=== PATIENT | male | born 1965 | race Caucasian/White ===

== ENCOUNTER 2017-01-22 12:31 | Emergency (ER) | payer OTHER ==
[~2017-01-22] VITALS: Ht 172.7 cm; Wt 90.4 kg
[2017-01-22 13:20] LABS: HEMATOCRIT 46.2 % (39.2-51.8); HEMOGLOBIN 16.3 g/dL (13.7-18.0); WHITE BLOOD COUNT 5.1 x10^3/uL (3.4-10)
[2017-01-22 13:32] LABS: BLOOD UREA NITROGEN 11 mg/dL (7-18)
[2017-01-22 15:07] VITALS: BP 150/90
== END 2017-01-22 15:09 | disposition home or self-care (01) ==
LOC: ED 14:00
DX: R10.32 Left lower quadrant pain (principal); E11.9 Type 2 diabetes mellitus without complications
CPT/HCPCS: 36415; 74176; 80048; 81003; 82040; 85025; 99285